=== PATIENT | male | born 1930 | race Caucasian/White ===

== ENCOUNTER 2017-07-10 11:36 | Observation (INO) | payer MEDICARE, BC, OTHER ==
[~2017-07-10] VITALS: Ht 198.1 cm; Wt 107.6 kg
[~2017-07-10 11:36] MED LIST: ACET325 PO; ALPR.5 PO; ALUMAG30SU PO; AMITIZA; AMOCLA875 PO; ASPI325 PO; Anucort-Hc25 MG PR; Azithromycin250 MG PO; BELPTAB PO; BENTYL10 MG PO; BISA5EC PO; Bactrim 400-801 EACH PO; Bactrim Ds Tab1 EACH PO; CALCAVITD PO; CHOLEST OFF PO; CLON.1 PO; CLOT10 SS; COLON HELPER; COLON HELPER PO; CYAN100 PO; CYAN1000 PO; Cipro500 MG PO; Clotrim Antifun15 GM TP; DOCCAL240 PO; DOCU100 PO; DOXA4 PO; DOXE10 PO; DOXE25 PO; DOXE50 PO; ENOX40I SC; ESOM20; ESZO2 PO; FENT25TP TOP; FINA5 PO; FISH1000 PO; FURO20; Flagyl500 MG PO; Flomax0.4 MG PO; GAVILAX17 GM PO; GAVILAX8.5 GM PO; GLUC500 PO; HYDACE25S; HYDACE5 PO; HYDMOR2; HYDMOR2 PO; HYDMOR4 PO; HYDR1TAB94 PO; HYOS.125 SL; Hydrocodone-Ap1 EA26 PO; INDO50 PO; ISOMON20 PO; ISOMON30 PO; LACT10SY PO; LANS15EC PO; LANS30EC PO; LAVAP17G PO; LIDO2L; LIDO2L PO; LISI20 PO; LUBIPROSTONE 24 MCG; MEGA RED; METR500 PO; MODA200 PO; MOMENI; MORP30 PO; Milk Of Ma400 MG/5 M PO; Motion Sickness25 M4 PO; NITR.4SL SL; NITR.6SL SL; NYST100TC TOP; Nexium40 MG PO; Norco 10-325 T1 EACH PO; Norco 5-325 Ta1 EACH PO; Norco 7.5-3251 EACH PO; Nystatin15 GM TP; OLME20 PO; OLME20-12. PO; OLME40 PO; OMEP20ER PO; OMEP40CA12 PO; ONDA4ODT PO; OSTEO BI-FLEX1 EAC2 PO; OXYACE5T PO; OXYACE7.5T PO; OXYC5 PO; Omeprazole20 M1; Omeprazole20 M1 PO; PENVK500 PO; POTA10T; PRED20 PO; PROC10 PO; PROCTOSOL-HC30 GM EXT; Percocet 5-3251 EACH PO; Prilosec Otc20 MG PO; RANI150 PO; RANO500T PO; ROXICODONE5 MG PO; RXOXYACE PO; SENNA PO; SILENOR6 MG PO; SOLI5 PO; SOTO80 PO; SUCR1 PO; SULTRIDS PO; TAMS.4ER PO; TAMSULOSIN HCL0.4 MG PO; TERA5 PO; TOCO1000 PO; TRAM50; TRAM50 PO; TRAMADOL; TRIPLE FLEX CA1 EACH PO; TRIPLE FLEX PO; UBID100 PO; Ultram50 MG PO; VICODIN PO; VITAMIN B122500 MC1 PO; WATER PILL; ZOLP10 PO; [UNRECOGNIZED DRUG - OTHER]; [UNRECOGNIZED DRUG - OTHER] PO; [UNRECOGNIZED DRUG - OTHER] PO; [UNRECOGNIZED DRUG - OTHER] PO
[2017-07-10 12:02] LABS: BASOPHILS ABSOLUTE AUTO 0.03 K/mm3 (0.00-0.23); BASOPHILS PERCENT AUTO 0 % (0-2); EOSINOPHILS ABSOLUTE AUTO 0.75 K/mm3 (0.00-0.68); EOSINOPHILS PERCENT AUTO 11 % (0-6); Hematocrit 45.7 % (37.0-53.0); IMMATURE GRAN ABSOLUTE AUTO 0.01 K/mm3 (0.00-0.10); IMMATURE GRAN PERCENT AUTO 0 % (0-1); LYMPHOCYTES ABSOLUTE AUTO 1.65 K/mm3 (0.84-5.20); LYMPHOCYTES PERCENT AUTO 24 % (21-46); MONOCYTES PERCENT AUTO 6 % (4-13); Mean Corpuscular HGB 30.7 pg (26.0-34.0); Mean Corpuscular HGB Conc 32.8 g/dL (31.5-36.5); Mean Corpuscular Volume 94 fL (80-100); Mean Platelet Volume 9.8 fL (9.1-12.4); NEUTROPHILS PERCENT AUTO 59 % (41-73); Platelet Count 189 K/mm3 (150-400); RDW Coefficient Variation 13.3 % (11.7-14.2); RDW Standard Deviation 45.7 fL (35.1-46.3); Red Blood Cell Count 4.88 M/mm3 (4.30-5.90); White Blood Cell Count 6.84 K/mm3 (4.00-11.30)
[2017-07-10 12:20] LABS: Alanine Aminotransfer (ALT/SGP 19 U/L (12-78); Albumin, Blood 3.3 g/dL (3.4-5.0); Albumin/Globulin Ratio 0.9 (0.8-1.8); Alk Phos 97 U/L (50-136); Anion Gap 6 mmol/L (6-16); Aspartate Aminotrans (AST/SGOT 14 U/L (12-37); Bilirubin, Total 0.9 mg/dL (0.1-1.0); Blood Urea Nitrogen 19 mg/dL (8-24); Bun/Creatinine Ratio 17.9 (12.0-20.0); CO2, Blood 27 mmol/L (21-32); Calcium, Blood 8.4 mg/dL (8.5-10.1); Chloride, Blood 107 mmol/L (98-108); Creatinine, Blood 1.06 mg/dL (0.60-1.20); Globulin, Blood 3.7 g/dL (2.2-4.0); Glomerular Filtration Rate >60 (60-); Glucose, Blood 97 mg/dL (70-99); Potassium, Blood 4.1 mmol/L (3.5-5.5); Sodium, Blood 140 mmol/L (136-145); Troponin I <0.015 ng/mL (0.000-0.040)
[2017-07-10 22:38] LABS: Source, Urine Voided
[2017-07-10 22:49] LABS: Bilirubin, Urine Neg (Neg); Blood, Urine Neg (Neg); Glucose Qualitative, Urine Neg (Neg); Ketones, Urine Neg (Neg); Leukocyte Esterase, Urine 1+ (Neg); Nitrite, Urine Neg (Neg); Protein, Urine Neg (Neg); Specific Gravity, Urine 1.015 (1.003-1.022); Urobilinogen, Urine 2+ (Normal); pH, Urine 6.5 (5.0-8.0)
[2017-07-10 22:52] LABS: Appearance, Urine Clear (Clear); Color, Urine Amber (P-Yellow)
[2017-07-10 22:55] LABS: Amorphous Light (0-Heavy); Bacteria Rare /hpf; Mucus Light (0-Heavy); Red Blood Cells, Urine Not Seen /hpf (0-2); Squamous Epithelial Cells Not Seen /hpf (Few); White Blood Cells, Urine Rare /hpf (0-5)
[2017-07-11 05:19] LABS: Alanine Aminotransfer (ALT/SGP 16 U/L (12-78); Albumin, Blood 2.9 g/dL (3.4-5.0); Albumin/Globulin Ratio 0.9 (0.8-1.8); Alk Phos 82 U/L (50-136); Anion Gap 7 mmol/L (6-16); Aspartate Aminotrans (AST/SGOT 12 U/L (12-37); Bilirubin, Total 0.8 mg/dL (0.1-1.0); Blood Urea Nitrogen 17 mg/dL (8-24); Bun/Creatinine Ratio 18.5 (12.0-20.0); CO2, Blood 26 mmol/L (21-32); Calcium, Blood 8.2 mg/dL (8.5-10.1); Chloride, Blood 107 mmol/L (98-108); Creatinine, Blood 0.92 mg/dL (0.60-1.20); Globulin, Blood 3.2 g/dL (2.2-4.0); Glomerular Filtration Rate >60 (60-); Glucose, Blood 96 mg/dL (70-99); Potassium, Blood 3.9 mmol/L (3.5-5.5); Sodium, Blood 140 mmol/L (136-145); Total Protein, Blood 6.1 g/dL (6.4-8.2)
[2017-07-11 05:22] LABS: Troponin I <0.015 ng/mL (0.000-0.040)
[2017-11-17] MEDS ORDERED: Vitamin B Comple1 EA PO (23:42)
[2018-03-18] MEDS ORDERED: DULOXETINE HCL20 MG PO (13:15)
[2018-03-18] MEDS ORDERED: FINA5 PO (13:15)
[2018-03-18] MEDS ORDERED: RANO500T PO (13:16)
[2018-05-06] MEDS ORDERED: TAMS.4ER PO (10:22)
[2018-05-06] MEDS ORDERED: TRAZ100 PO (10:22)
[2018-05-06] MEDS ORDERED: SOTO80 PO (10:23)
[2018-05-06] MEDS ORDERED: DOXE50 PO (10:23)
[2018-05-06] MEDS ORDERED: EC-Naprosyn375 MG PO (13:16)
== END 2017-07-11 17:29 | disposition home or self-care (01) ==
LOC: ER 11:36 → MEDS 11:37 → ER 15:31 → MEDS 22:00 → ENPENDDIS 07-11 16:36 → MEDS 07-11 17:29
PROVIDERS: Emergency Medicine; Family Medicine
DX: R07.89 Other chest pain (principal); I25.10 Atherosclerotic heart disease of native coronary artery without angina pectoris; I48.91 Unspecified atrial fibrillation; I11.9 Hypertensive heart disease without heart failure; I09.9 Rheumatic heart disease, unspecified; N40.0 Benign prostatic hyperplasia without lower urinary tract symptoms; M19.90 Unspecified osteoarthritis, unspecified site; E11.9 Type 2 diabetes mellitus without complications; E78.5 Hyperlipidemia, unspecified; R13.10 Dysphagia, unspecified; K21.9 Gastro-esophageal reflux disease without esophagitis; I71.4 Abdominal aortic aneurysm, without rupture; H52.209 Unspecified astigmatism, unspecified eye; Z90.49 Acquired absence of other specified parts of digestive tract; Z95.0 Presence of cardiac pacemaker; Z79.82 Long term (current) use of aspirin; Z79.899 Other long term (current) drug therapy; Z87.891 Personal history of nicotine dependence; Z98.890 Other specified postprocedural states
CPT/HCPCS: 36415; 71046; 80053; 81001; 82947; 83880; 84484; 85025; 87086; 93005; 93010; 99285; G0378; J1650

== ENCOUNTER 2017-08-02 15:45 | Emergency (ER) | payer MEDICARE, BC, OTHER ==
[~2017-08-02] VITALS: Ht 198.1 cm; Wt 111.1 kg
[2017-08-02] MEDS ORDERED: DULO30 PO (16:17)
[2017-08-02 16:26] LABS: BASOPHILS ABSOLUTE AUTO 0.05 K/mm3 (0.00-0.23); BASOPHILS PERCENT AUTO 1 % (0-2); EOSINOPHILS ABSOLUTE AUTO 0.31 K/mm3 (0.00-0.68); EOSINOPHILS PERCENT AUTO 4 % (0-6); Hematocrit 45.1 % (37.0-53.0); Hemoglobin 14.7 g/dL (13.5-17.5); IMMATURE GRAN ABSOLUTE AUTO 0.02 K/mm3 (0.00-0.10); IMMATURE GRAN PERCENT AUTO 0 % (0-1); LYMPHOCYTES ABSOLUTE AUTO 1.41 K/mm3 (0.84-5.20); LYMPHOCYTES PERCENT AUTO 18 % (21-46); MONOCYTES PERCENT AUTO 6 % (4-13); Mean Corpuscular HGB 30.1 pg (26.0-34.0); Mean Corpuscular HGB Conc 32.6 g/dL (31.5-36.5); Mean Corpuscular Volume 92 fL (80-100); Mean Platelet Volume 9.8 fL (9.1-12.4); NEUTROPHILS ABSOLUTE AUTO 5.75 K/mm3 (1.96-9.15); NEUTROPHILS PERCENT AUTO 72 % (41-73); Platelet Count 200 K/mm3 (150-400); RDW Coefficient Variation 12.5 % (11.7-14.2); RDW Standard Deviation 42.4 fL (35.1-46.3); Red Blood Cell Count 4.89 M/mm3 (4.30-5.90); White Blood Cell Count 8.04 K/mm3 (4.00-11.30)
[2017-08-02 16:41] LABS: Alanine Aminotransfer (ALT/SGP 18 U/L (12-78); Albumin, Blood 3.4 g/dL (3.4-5.0); Albumin/Globulin Ratio 0.9 (0.8-1.8); Alk Phos 95 U/L (50-136); Anion Gap 9 mmol/L (6-16); Aspartate Aminotrans (AST/SGOT 15 U/L (12-37); Bilirubin, Total 1.5 mg/dL (0.1-1.0); Blood Urea Nitrogen 18 mg/dL (8-24); Bun/Creatinine Ratio 16.4 (12.0-20.0); CO2, Blood 26 mmol/L (21-32); Calcium, Blood 8.5 mg/dL (8.5-10.1); Chloride, Blood 102 mmol/L (98-108); Globulin, Blood 3.6 g/dL (2.2-4.0); Glomerular Filtration Rate >60 (60-); Glucose, Blood 93 mg/dL (70-99); Potassium, Blood 3.7 mmol/L (3.5-5.5); Sodium, Blood 137 mmol/L (136-145); Troponin I <0.015 ng/mL (0.000-0.040)
[2017-08-02 17:55] LABS: Source, Urine Clean Catch
[2017-08-02 18:00] LABS: Bilirubin, Urine Neg (Neg); Blood, Urine Neg (Neg); Glucose Qualitative, Urine Neg (Neg); Ketones, Urine 1+ (Neg); Leukocyte Esterase, Urine Neg (Neg); Nitrite, Urine Neg (Neg); Protein, Urine 1+ (Neg); Specific Gravity, Urine 1.015 (1.003-1.022); Urobilinogen, Urine 1+ (Normal)
[2017-08-02 18:08] LABS: Appearance, Urine Clear (Clear); Color, Urine Yellow (P-Yellow)
[2017-11-17] MEDS ORDERED: Vitamin B Comple1 EA PO (23:42)
[2018-03-18] MEDS ORDERED: DULOXETINE HCL20 MG PO (13:15)
[2018-03-18] MEDS ORDERED: FINA5 PO (13:15)
[2018-03-18] MEDS ORDERED: RANO500T PO (13:16)
[2018-05-06] MEDS ORDERED: TRAZ100 PO (10:22)
[2018-05-06] MEDS ORDERED: TAMS.4ER PO (10:22)
[2018-05-06] MEDS ORDERED: SOTO80 PO (10:23)
[2018-05-06] MEDS ORDERED: DOXE50 PO (10:23)
[2018-05-06] MEDS ORDERED: EC-Naprosyn375 MG PO (13:16)
== END 2017-08-02 19:12 | disposition home or self-care (01) ==
LOC: ER 15:45
PROVIDERS: Emergency Medicine
DX: R07.9 Chest pain, unspecified (principal); I48.91 Unspecified atrial fibrillation; I10 Essential (primary) hypertension; E11.9 Type 2 diabetes mellitus without complications; E78.5 Hyperlipidemia, unspecified
CPT/HCPCS: 71046; 80053; 83690; 84484; 85025; 93005; 93010; 96374; 99284; J2405

== ENCOUNTER 2017-10-08 19:29 | Emergency (ER) | payer MEDICARE, BC, OTHER ==
[~2017-10-08] VITALS: Ht 198.1 cm; Wt 111.1 kg
[~2017-10-08 19:29] MED LIST changes: +DULO30 PO
[2017-10-08 20:03] LABS: BASOPHILS ABSOLUTE AUTO 0.04 K/mm3 (0.00-0.23); BASOPHILS PERCENT AUTO 1 % (0-2); EOSINOPHILS ABSOLUTE AUTO 0.29 K/mm3 (0.00-0.68); EOSINOPHILS PERCENT AUTO 4 % (0-6); Hemoglobin 14.9 g/dL (13.5-17.5); IMMATURE GRAN ABSOLUTE AUTO 0.02 K/mm3 (0.00-0.10); IMMATURE GRAN PERCENT AUTO 0 % (0-1); LYMPHOCYTES ABSOLUTE AUTO 1.55 K/mm3 (0.84-5.20); LYMPHOCYTES PERCENT AUTO 19 % (21-46); MONOCYTES ABSOLUTE AUTO 0.54 K/mm3 (0.16-1.47); MONOCYTES PERCENT AUTO 7 % (4-13); Mean Corpuscular HGB 30.9 pg (26.0-34.0); Mean Corpuscular HGB Conc 33.1 g/dL (31.5-36.5); Mean Corpuscular Volume 93 fL (80-100); Mean Platelet Volume 8.8 fL (9.1-12.4); NEUTROPHILS ABSOLUTE AUTO 5.92 K/mm3 (1.96-9.15); NEUTROPHILS PERCENT AUTO 71 % (41-73); Platelet Count 210 K/mm3 (150-400); RDW Coefficient Variation 13.2 % (11.7-14.2); RDW Standard Deviation 44.9 fL (35.1-46.3); Red Blood Cell Count 4.82 M/mm3 (4.30-5.90); White Blood Cell Count 8.36 K/mm3 (4.00-11.30)
[2017-10-08 20:23] LABS: Alanine Aminotransfer (ALT/SGP 19 U/L (12-78); Albumin, Blood 3.7 g/dL (3.4-5.0); Alk Phos 93 U/L (50-136); Anion Gap 6 mmol/L (6-16); Aspartate Aminotrans (AST/SGOT 16 U/L (12-37); Bilirubin, Total 1.6 mg/dL (0.1-1.0); Blood Urea Nitrogen 23 mg/dL (8-24); Bun/Creatinine Ratio 20.5 (12.0-20.0); CO2, Blood 27 mmol/L (21-32); Calcium, Blood 8.9 mg/dL (8.5-10.1); Chloride, Blood 107 mmol/L (98-108); Creatinine, Blood 1.12 mg/dL (0.60-1.20); Globulin, Blood 3.6 g/dL (2.2-4.0); Glomerular Filtration Rate >60 (60-); Glucose, Blood 97 mg/dL (70-99); Potassium, Blood 4.1 mmol/L (3.5-5.5); Sodium, Blood 140 mmol/L (136-145); Total Protein, Blood 7.3 g/dL (6.4-8.2)
== END 2017-10-09 | disposition home or self-care (01) ==
LOC: ER 19:29
PROVIDERS: Emergency Medicine
DX: R73.9 Hyperglycemia, unspecified (principal); Z88.8 Allergy status to other drugs, medicaments and biological substances; Z91.040 Latex allergy status; Z91.048 Other nonmedicinal substance allergy status; Z79.899 Other long term (current) drug therapy; Z79.82 Long term (current) use of aspirin; Z79.891 Long term (current) use of opiate analgesic; I10 Essential (primary) hypertension; Z87.891 Personal history of nicotine dependence
CPT/HCPCS: 36415; 80053; 82947; 85025; 99283

== ENCOUNTER 2017-12-13 13:43 | Emergency (ER) | payer MEDICARE, BC, OTHER ==
[~2017-12-13] VITALS: Ht 198.1 cm; Wt 111.1 kg
[~2017-12-13 13:43] MED LIST changes: +Vitamin B Comple1 EA PO
[2017-12-13 14:59] LABS: BASOPHILS ABSOLUTE AUTO 0.04 K/mm3 (0.00-0.23); BASOPHILS PERCENT AUTO 1 % (0-2); EOSINOPHILS ABSOLUTE AUTO 0.78 K/mm3 (0.00-0.68); EOSINOPHILS PERCENT AUTO 10 % (0-6); Hematocrit 44.7 % (37.0-53.0); Hemoglobin 14.6 g/dL (13.5-17.5); IMMATURE GRAN ABSOLUTE AUTO 0.04 K/mm3 (0.00-0.10); IMMATURE GRAN PERCENT AUTO 1 % (0-1); LYMPHOCYTES ABSOLUTE AUTO 1.56 K/mm3 (0.84-5.20); LYMPHOCYTES PERCENT AUTO 21 % (21-46); MONOCYTES ABSOLUTE AUTO 0.42 K/mm3 (0.16-1.47); MONOCYTES PERCENT AUTO 6 % (4-13); Mean Corpuscular HGB 30.5 pg (26.0-34.0); Mean Corpuscular HGB Conc 32.7 g/dL (31.5-36.5); Mean Corpuscular Volume 94 fL (80-100); Mean Platelet Volume 9.3 fL (9.1-12.4); NEUTROPHILS ABSOLUTE AUTO 4.63 K/mm3 (1.96-9.15); NEUTROPHILS PERCENT AUTO 62 % (41-73); Platelet Count 176 K/mm3 (150-400); RDW Coefficient Variation 12.6 % (11.7-14.2); RDW Standard Deviation 43.7 fL (35.1-46.3); Red Blood Cell Count 4.78 M/mm3 (4.30-5.90); White Blood Cell Count 7.47 K/mm3 (4.00-11.30)
[2017-12-13 15:24] LABS: Alanine Aminotransfer (ALT/SGP 15 U/L (12-78); Albumin, Blood 3.3 g/dL (3.4-5.0); Albumin/Globulin Ratio 0.9 (0.8-1.8); Alk Phos 98 U/L (50-136); Anion Gap 9 mmol/L (6-16); Aspartate Aminotrans (AST/SGOT 12 U/L (12-37); Bilirubin, Total 0.8 mg/dL (0.1-1.0); Blood Urea Nitrogen 23 mg/dL (8-24); Bun/Creatinine Ratio 22.1 (12.0-20.0); CO2, Blood 25 mmol/L (21-32); Calcium, Blood 8.4 mg/dL (8.5-10.1); Chloride, Blood 107 mmol/L (98-108); Creatinine, Blood 1.04 mg/dL (0.60-1.20); Globulin, Blood 3.6 g/dL (2.2-4.0); Glomerular Filtration Rate >60 (60-); Glucose, Blood 86 mg/dL (70-99); Potassium, Blood 3.9 mmol/L (3.5-5.5); Sodium, Blood 141 mmol/L (136-145); Total Protein, Blood 6.9 g/dL (6.4-8.2); Troponin I <0.015 ng/mL (0.000-0.040)
== END 2017-12-13 16:25 | disposition home or self-care (01) ==
LOC: ER 13:43
PROVIDERS: Internal Medicine
DX: K29.70 Gastritis, unspecified, without bleeding (principal); Z91.040 Latex allergy status; Z91.048 Other nonmedicinal substance allergy status; Z79.899 Other long term (current) drug therapy; I10 Essential (primary) hypertension; Z87.891 Personal history of nicotine dependence
CPT/HCPCS: 71046; 80053; 82947; 83880; 84484; 85025; 93005; 93010; 99284

== ENCOUNTER 2018-03-18 12:55 | Emergency (ER) | payer MEDICARE, OTHER ==
[~2018-03-18] VITALS: Ht 198.1 cm; Wt 120.2 kg
[2018-03-18] MEDS ORDERED: DULOXETINE HCL20 MG (13:15)
[2018-03-18] MEDS ORDERED: TRAZ50 (13:15)
[2018-03-18] MEDS ORDERED: FINA5 (13:15)
[2018-03-18] MEDS ORDERED: Nortriptyline H50 MG (13:16)
[2018-03-18] MEDS ORDERED: ESCI10 (13:16)
[2018-03-18] MEDS ORDERED: RANO500T (13:16)
[2018-03-18] MEDS ORDERED: Dicyclomine HCl10 MG (13:16)
[2018-03-18 13:32] LABS: BASOPHILS ABSOLUTE AUTO 0.04 K/mm3 (0.00-0.23); BASOPHILS PERCENT AUTO 1 % (0-2); EOSINOPHILS ABSOLUTE AUTO 0.55 K/mm3 (0.00-0.68); EOSINOPHILS PERCENT AUTO 8 % (0-6); Hematocrit 43.9 % (37.0-53.0); Hemoglobin 14.3 g/dL (13.5-17.5); IMMATURE GRAN ABSOLUTE AUTO 0.02 K/mm3 (0.00-0.10); IMMATURE GRAN PERCENT AUTO 0 % (0-1); LYMPHOCYTES ABSOLUTE AUTO 1.67 K/mm3 (0.84-5.20); LYMPHOCYTES PERCENT AUTO 25 % (21-46); MONOCYTES ABSOLUTE AUTO 0.45 K/mm3 (0.16-1.47); MONOCYTES PERCENT AUTO 7 % (4-13); Mean Corpuscular HGB 30.3 pg (26.0-34.0); Mean Corpuscular HGB Conc 32.6 g/dL (31.5-36.5); Mean Corpuscular Volume 93 fL (80-100); Mean Platelet Volume 9.4 fL (9.1-12.4); NEUTROPHILS ABSOLUTE AUTO 4.02 K/mm3 (1.96-9.15); NEUTROPHILS PERCENT AUTO 60 % (41-73); Platelet Count 188 K/mm3 (150-400); RDW Coefficient Variation 12.7 % (11.7-14.2); RDW Standard Deviation 43.9 fL (35.1-46.3); Red Blood Cell Count 4.72 M/mm3 (4.30-5.90); White Blood Cell Count 6.75 K/mm3 (4.00-11.30)
[2018-03-18 13:49] LABS: Alanine Aminotransfer (ALT/SGP 18 U/L (12-78); Albumin, Blood 3.4 g/dL (3.4-5.0); Alk Phos 100 U/L (50-136); Anion Gap 8 mmol/L (6-16); Aspartate Aminotrans (AST/SGOT 16 U/L (12-37); Blood Urea Nitrogen 14 mg/dL (8-24); Bun/Creatinine Ratio 13.2 (12.0-20.0); CO2, Blood 28 mmol/L (21-32); Calcium, Blood 8.6 mg/dL (8.5-10.1); Chloride, Blood 104 mmol/L (98-108); Creatinine, Blood 1.06 mg/dL (0.60-1.20); Globulin, Blood 3.5 g/dL (2.2-4.0); Glomerular Filtration Rate >60 (60-); Glucose, Blood 88 mg/dL (70-99); Potassium, Blood 3.7 mmol/L (3.5-5.5); Sodium, Blood 140 mmol/L (136-145); Total Protein, Blood 6.9 g/dL (6.4-8.2); Troponin I <0.015 ng/mL (0.000-0.040)
[2018-03-18 14:47] LABS: Source, Urine Clean Catch
[2018-03-18 14:52] LABS: Appearance, Urine Clear (Clear); Bilirubin, Urine Neg (Neg); Blood, Urine Neg (Neg); Color, Urine Yellow (P-Yellow); Glucose Qualitative, Urine Neg (Neg); Ketones, Urine Neg (Neg); Leukocyte Esterase, Urine Neg (Neg); Nitrite, Urine Neg (Neg); Protein, Urine Neg (Neg); Urobilinogen, Urine 1+ (Normal)
[2018-03-18] MEDS ORDERED: Zofran Odt4 MG PO (15:59)
== END 2018-03-18 15:59 | disposition home or self-care (01) ==
LOC: ER 12:55
PROVIDERS: Emergency Medicine
DX: R10.9 Unspecified abdominal pain (principal); R07.9 Chest pain, unspecified; R19.7 Diarrhea, unspecified; G89.29 Other chronic pain; I10 Essential (primary) hypertension; Z91.048 Other nonmedicinal substance allergy status; Z88.8 Allergy status to other drugs, medicaments and biological substances; Z91.040 Latex allergy status; Z79.899 Other long term (current) drug therapy
CPT/HCPCS: 71046; 74019; 80053; 81003; 84484; 85025; 93005; 93010; 99284-25

== ENCOUNTER 2018-07-09 20:33 | Emergency (ER) | payer MEDICARE, OTHER ==
[~2018-07-09] VITALS: Ht 198.1 cm; Wt 106.6 kg
[~2018-07-09 20:33] MED LIST changes: +DULOXETINE HCL20 MG PO; +Dicyclomine HCl10 MG; +EC-Naprosyn375 MG PO; +ESCI10; +Nortriptyline H50 MG; +TRAZ100 PO; +TRAZ50; +Zofran Odt4 MG PO
== END 2018-07-09 21:30 | disposition home or self-care (01) ==
LOC: ER 20:33
DX: S51.012A Laceration without foreign body of left elbow, initial encounter (principal); S61.412A Laceration without foreign body of left hand, initial encounter; S16.1XXA Strain of muscle, fascia and tendon at neck level, initial encounter; S70.02XA Contusion of left hip, initial encounter; W19.XXXA Unspecified fall, initial encounter; I48.91 Unspecified atrial fibrillation; I10 Essential (primary) hypertension; E11.9 Type 2 diabetes mellitus without complications; E78.5 Hyperlipidemia, unspecified; Z79.899 Other long term (current) drug therapy
CPT/HCPCS: 72125; 73502; 99284-25

== ENCOUNTER 2019-01-19 15:28 | Emergency (ER) | payer MEDICARE, OTHER ==
[~2019-01-19] VITALS: Ht 198.1 cm; Wt 120.2 kg
[2019-01-19 15:52] LABS: Source, Urine Catheter
[2019-01-19 16:01] LABS: Appearance, Urine Clear (Clear); Blood, Urine Neg (Neg); Color, Urine Amber (P-Yellow); Glucose Qualitative, Urine Neg (Neg); Ketones, Urine 1+ (Neg); Leukocyte Esterase, Urine 1+ (Neg); Nitrite, Urine Neg (Neg); Protein, Urine 1+ (Neg); Specific Gravity, Urine 1.015 (1.003-1.022); Urobilinogen, Urine 3+ (Normal)
[2019-01-19 16:08] LABS: Bilirubin, Urine 1+ (Neg)
[2019-01-19 16:10] LABS: Red Blood Cells, Urine 0-2 /hpf (0-2); Squamous Epithelial Cells Not Seen /hpf (Few); White Blood Cells, Urine 0-2 /hpf (0-5)
[2019-01-19 16:11] LABS: Bacteria Rare /hpf
[2019-01-19] MEDS ORDERED: Cipro500 MG PO (16:32)
[2019-01-19] MEDS ORDERED: Norco 5-325 Ta1 EACH PO (16:37)
== END 2019-01-19 16:41 | disposition home or self-care (01) ==
LOC: ER 15:28
PROVIDERS: Emergency Medicine
DX: N39.0 Urinary tract infection, site not specified (principal); Z91.048 Other nonmedicinal substance allergy status; Z88.8 Allergy status to other drugs, medicaments and biological substances; Z91.040 Latex allergy status; Z79.899 Other long term (current) drug therapy; I10 Essential (primary) hypertension; Z87.891 Personal history of nicotine dependence
CPT/HCPCS: 51701; 81001; 87086; 99283

== ENCOUNTER 2019-01-23 19:15 | Emergency (ER) | payer MEDICARE, OTHER ==
[~2019-01-23] VITALS: Ht 198.1 cm; Wt 120.2 kg
[2019-01-23 19:30] LABS: BASOPHILS ABSOLUTE AUTO 0.05 K/mm3 (0.00-0.23); BASOPHILS PERCENT AUTO 1 % (0-2); EOSINOPHILS ABSOLUTE AUTO 0.48 K/mm3 (0.00-0.68); EOSINOPHILS PERCENT AUTO 8 % (0-6); Hematocrit 40.9 % (37.0-53.0); Hemoglobin 13.1 g/dL (13.5-17.5); IMMATURE GRAN ABSOLUTE AUTO 0.02 K/mm3 (0.00-0.10); IMMATURE GRAN PERCENT AUTO 0 % (0-1); LYMPHOCYTES ABSOLUTE AUTO 1.34 K/mm3 (0.84-5.20); LYMPHOCYTES PERCENT AUTO 23 % (21-46); MONOCYTES PERCENT AUTO 7 % (4-13); Mean Corpuscular Volume 97 fL (80-100); Mean Platelet Volume 9.4 fL (9.1-12.4); NEUTROPHILS ABSOLUTE AUTO 3.63 K/mm3 (1.96-9.15); NEUTROPHILS PERCENT AUTO 61 % (41-73); Platelet Count 167 K/mm3 (150-400); RDW Coefficient Variation 13.1 % (11.7-14.2); Red Blood Cell Count 4.22 M/mm3 (4.30-5.90); White Blood Cell Count 5.92 K/mm3 (4.00-11.30)
[2019-01-23] MEDS ORDERED: PANTOPRAZOLE SO40 M1 PO (20:18)
[2019-01-23 20:21] LABS: Alanine Aminotransfer (ALT/SGP 20 U/L (12-78); Albumin, Blood 3.1 g/dL (3.4-5.0); Albumin/Globulin Ratio 1.1 (0.8-1.8); Alk Phos 66 U/L (50-136); Anion Gap 6 mmol/L (6-16); Aspartate Aminotrans (AST/SGOT 12 U/L (12-37); Blood Urea Nitrogen 19 mg/dL (8-24); Bun/Creatinine Ratio 17.3 (12.0-20.0); CO2, Blood 25 mmol/L (21-32); Calcium, Blood 8.1 mg/dL (8.5-10.1); Chloride, Blood 110 mmol/L (98-108); Globulin, Blood 2.8 g/dL (2.2-4.0); Glomerular Filtration Rate >60 (60-); Glucose, Blood 81 mg/dL (70-99); Sodium, Blood 141 mmol/L (136-145); Total Protein, Blood 5.9 g/dL (6.4-8.2); Troponin I <0.015 ng/mL (0.000-0.040)
[2019-01-23] MEDS ORDERED: Nortriptyline H10 MG PO (20:21)
[2019-01-23 23:23] LABS: Source, Urine Voided
[2019-01-23 23:27] LABS: Blood, Urine Neg (Neg); Glucose Qualitative, Urine Neg (Neg); Ketones, Urine 1+ (Neg); Leukocyte Esterase, Urine 1+ (Neg); Nitrite, Urine Neg (Neg); Protein, Urine Neg (Neg); Urobilinogen, Urine 2+ (Normal)
[2019-01-23 23:31] LABS: Appearance, Urine Clear (Clear); Bilirubin, Urine 1+ (Neg); Color, Urine Amber (P-Yellow)
[2019-01-23 23:40] LABS: Bacteria Not Seen /hpf; Red Blood Cells, Urine Not Seen /hpf (0-2); Squamous Epithelial Cells Not Seen /hpf (Few); White Blood Cells, Urine Rare /hpf (0-5)
[2019-01-24] MEDS ORDERED: Miralax17 GM PO (00:22)
== END 2019-01-24 00:41 | disposition home or self-care (01) ==
LOC: ER 19:15
PROVIDERS: Emergency Medicine
DX: K56.41 Fecal impaction (principal); I10 Essential (primary) hypertension; Z91.040 Latex allergy status; Z91.048 Other nonmedicinal substance allergy status; Z79.899 Other long term (current) drug therapy; Z87.891 Personal history of nicotine dependence
CPT/HCPCS: 74176; 80053; 81001; 83690; 84484; 85025; 87086; 93005; 93010; 99284-25

== ENCOUNTER 2019-02-28 19:07 | Emergency (ER) | payer MEDICARE, OTHER ==
[~2019-02-28] VITALS: Ht 198.1 cm; Wt 120.2 kg
[~2019-02-28 19:07] MED LIST changes: +Miralax17 GM PO; +Nortriptyline H10 MG PO; +PANTOPRAZOLE SO40 M1 PO
[2019-02-28 19:56] LABS: BASOPHILS ABSOLUTE AUTO 0.04 K/mm3 (0.00-0.23); BASOPHILS PERCENT AUTO 0 % (0-2); EOSINOPHILS ABSOLUTE AUTO 0.44 K/mm3 (0.00-0.68); EOSINOPHILS PERCENT AUTO 5 % (0-6); Hematocrit 47.8 % (37.0-53.0); Hemoglobin 15.3 g/dL (13.5-17.5); IMMATURE GRAN ABSOLUTE AUTO 0.03 K/mm3 (0.00-0.10); IMMATURE GRAN PERCENT AUTO 0 % (0-1); LYMPHOCYTES ABSOLUTE AUTO 1.48 K/mm3 (0.84-5.20); LYMPHOCYTES PERCENT AUTO 15 % (21-46); MONOCYTES ABSOLUTE AUTO 0.66 K/mm3 (0.16-1.47); MONOCYTES PERCENT AUTO 7 % (4-13); Mean Corpuscular HGB 30.4 pg (26.0-34.0); Mean Corpuscular Volume 95 fL (80-100); Mean Platelet Volume 10.9 fL (9.1-12.4); NEUTROPHILS ABSOLUTE AUTO 7.03 K/mm3 (1.96-9.15); NEUTROPHILS PERCENT AUTO 73 % (41-73); Platelet Count 200 K/mm3 (150-400); RDW Coefficient Variation 13.2 % (11.7-14.2); RDW Standard Deviation 46.4 fL (35.1-46.3); Red Blood Cell Count 5.04 M/mm3 (4.30-5.90); White Blood Cell Count 9.68 K/mm3 (4.00-11.30)
[2019-02-28 20:06] LABS: Albumin, Blood 3.3 g/dL (3.4-5.0); Albumin/Globulin Ratio 0.8 (0.8-1.8); Bilirubin, Total 1.6 mg/dL (0.1-1.0); Bun/Creatinine Ratio 19.1 (12.0-20.0); Calcium, Blood 8.7 mg/dL (8.5-10.1); Creatinine, Blood 1.83 mg/dL (0.60-1.20); Potassium, Blood 3.8 mmol/L (3.5-5.5); Total Protein, Blood 7.3 g/dL (6.4-8.2)
[2019-02-28] MEDS ORDERED: TESSALON PERLE100 MG PO (20:26)
== END 2019-02-28 20:44 | disposition home or self-care (01) ==
LOC: ER 19:07
PROVIDERS: Emergency Medicine
DX: N17.9 Acute kidney failure, unspecified (principal); I10 Essential (primary) hypertension; Z79.899 Other long term (current) drug therapy
CPT/HCPCS: 71045; 80053; 85025; 93005; 93010; 99284-25

== ENCOUNTER 2019-05-31 08:36 | Emergency (ER) | payer MEDICARE, OTHER ==
[~2019-05-31] VITALS: Ht 198.1 cm; Wt 74.8 kg
[~2019-05-31 08:36] MED LIST changes: -Nortriptyline H10 MG PO; +Nortriptyline H50 MG PO; +TESSALON PERLE100 MG PO
[2019-05-31 09:19] LABS: BASOPHILS ABSOLUTE AUTO 0.04 K/mm3 (0.00-0.23); BASOPHILS PERCENT AUTO 1 % (0-2); EOSINOPHILS ABSOLUTE AUTO 0.38 K/mm3 (0.00-0.68); EOSINOPHILS PERCENT AUTO 5 % (0-6); Hematocrit 42.1 % (37.0-53.0); Hemoglobin 13.4 g/dL (13.5-17.5); IMMATURE GRAN ABSOLUTE AUTO 0.04 K/mm3 (0.00-0.10); IMMATURE GRAN PERCENT AUTO 1 % (0-1); LYMPHOCYTES ABSOLUTE AUTO 2.16 K/mm3 (0.84-5.20); LYMPHOCYTES PERCENT AUTO 29 % (21-46); MONOCYTES ABSOLUTE AUTO 0.46 K/mm3 (0.16-1.47); MONOCYTES PERCENT AUTO 6 % (4-13); Mean Corpuscular HGB 30.7 pg (26.0-34.0); Mean Corpuscular HGB Conc 31.8 g/dL (31.5-36.5); Mean Corpuscular Volume 97 fL (80-100); Mean Platelet Volume 9.9 fL (9.1-12.4); NEUTROPHILS ABSOLUTE AUTO 4.42 K/mm3 (1.96-9.15); NEUTROPHILS PERCENT AUTO 59 % (41-73); Platelet Count 197 K/mm3 (150-400); RDW Coefficient Variation 13.7 % (11.7-14.2); RDW Standard Deviation 49.1 fL (35.1-46.3); Red Blood Cell Count 4.36 M/mm3 (4.30-5.90)
[2019-05-31 09:38] LABS: Alanine Aminotransfer (ALT/SGP 27 U/L (12-78); Albumin, Blood 3.1 g/dL (3.4-5.0); Albumin/Globulin Ratio 0.9 (0.8-1.8); Alk Phos 77 U/L (50-136); Anion Gap 9 mmol/L (6-16); Aspartate Aminotrans (AST/SGOT 25 U/L (12-37); Bilirubin, Total 0.8 mg/dL (0.1-1.0); Blood Urea Nitrogen 21 mg/dL (8-24); Bun/Creatinine Ratio 16.7 (12.0-20.0); CO2, Blood 25 mmol/L (21-32); Calcium, Blood 8.5 mg/dL (8.5-10.1); Chloride, Blood 107 mmol/L (98-108); Creatinine, Blood 1.26 mg/dL (0.60-1.20); Globulin, Blood 3.5 g/dL (2.2-4.0); Glomerular Filtration Rate 57 (60-); Glucose, Blood 89 mg/dL (70-99); Potassium, Blood 3.7 mmol/L (3.5-5.5); Sodium, Blood 141 mmol/L (136-145); Total Protein, Blood 6.6 g/dL (6.4-8.2); Troponin I <0.015 ng/mL (0.000-0.040)
[2019-05-31] MEDS ORDERED: DULO30 PO (10:35)
[2019-05-31] MEDS ORDERED: Diclofenac Sodi50 MG PO (10:35)
[2019-05-31] MEDS ORDERED: Naproxen375 M1 PO (10:36)
== END 2019-05-31 13:20 | disposition home or self-care (01) ==
LOC: ER 08:36
PROVIDERS: Physician Assistant
DX: R07.9 Chest pain, unspecified (principal); I10 Essential (primary) hypertension; Z91.048 Other nonmedicinal substance allergy status; Z88.8 Allergy status to other drugs, medicaments and biological substances; Z91.040 Latex allergy status; Z79.899 Other long term (current) drug therapy
CPT/HCPCS: 71046; 80053; 84484; 85025; 93005; 93010; 99285-25

== ENCOUNTER 2019-06-03 04:36 | Emergency (ER) | payer MEDICARE, OTHER ==
[~2019-06-03] VITALS: Ht 198.1 cm; Wt 72.6 kg
[~2019-06-03 04:36] MED LIST changes: +Diclofenac Sodi50 MG PO; +Naproxen375 M1 PO
[2019-06-03 04:57] LABS: BASOPHILS ABSOLUTE AUTO 0.07 K/mm3 (0.00-0.23); BASOPHILS PERCENT AUTO 1 % (0-2); EOSINOPHILS ABSOLUTE AUTO 0.27 K/mm3 (0.00-0.68); EOSINOPHILS PERCENT AUTO 4 % (0-6); Hematocrit 43.1 % (37.0-53.0); Hemoglobin 13.7 g/dL (13.5-17.5); IMMATURE GRAN ABSOLUTE AUTO 0.01 K/mm3 (0.00-0.10); IMMATURE GRAN PERCENT AUTO 0 % (0-1); LYMPHOCYTES ABSOLUTE AUTO 1.68 K/mm3 (0.84-5.20); LYMPHOCYTES PERCENT AUTO 25 % (21-46); MONOCYTES ABSOLUTE AUTO 0.44 K/mm3 (0.16-1.47); MONOCYTES PERCENT AUTO 7 % (4-13); Mean Corpuscular HGB 30.6 pg (26.0-34.0); Mean Corpuscular HGB Conc 31.8 g/dL (31.5-36.5); Mean Corpuscular Volume 96 fL (80-100); Mean Platelet Volume 9.6 fL (9.1-12.4); NEUTROPHILS ABSOLUTE AUTO 4.25 K/mm3 (1.96-9.15); NEUTROPHILS PERCENT AUTO 63 % (41-73); Platelet Count 209 K/mm3 (150-400); RDW Standard Deviation 49.9 fL (35.1-46.3); Red Blood Cell Count 4.48 M/mm3 (4.30-5.90); White Blood Cell Count 6.72 K/mm3 (4.00-11.30)
[2019-06-03 05:17] LABS: Alanine Aminotransfer (ALT/SGP 47 U/L (12-78); Albumin, Blood 3.2 g/dL (3.4-5.0); Albumin/Globulin Ratio 0.9 (0.8-1.8); Alk Phos 79 U/L (50-136); Anion Gap 9 mmol/L (6-16); Aspartate Aminotrans (AST/SGOT 30 U/L (12-37); Bilirubin, Total 1.3 mg/dL (0.1-1.0); Blood Urea Nitrogen 19 mg/dL (8-24); Bun/Creatinine Ratio 17.1 (12.0-20.0); CO2, Blood 25 mmol/L (21-32); Calcium, Blood 8.8 mg/dL (8.5-10.1); Chloride, Blood 109 mmol/L (98-108); Creatinine, Blood 1.11 mg/dL (0.60-1.20); Globulin, Blood 3.6 g/dL (2.2-4.0); Glomerular Filtration Rate >60 (60-); Glucose, Blood 89 mg/dL (70-99); Potassium, Blood 3.9 mmol/L (3.5-5.5); Sodium, Blood 143 mmol/L (136-145); Total Protein, Blood 6.8 g/dL (6.4-8.2); Troponin I <0.015 ng/mL (0.000-0.040)
== END 2019-06-03 07:04 | disposition home or self-care (01) ==
LOC: ER 04:36
PROVIDERS: Emergency Medicine
DX: R07.9 Chest pain, unspecified (principal); Z88.8 Allergy status to other drugs, medicaments and biological substances; Z91.040 Latex allergy status; Z91.048 Other nonmedicinal substance allergy status; Z79.899 Other long term (current) drug therapy; I10 Essential (primary) hypertension; Z87.891 Personal history of nicotine dependence
CPT/HCPCS: 71046; 80053; 83690; 84484; 85025; 93005; 93010; 99285-25

== ENCOUNTER 2019-06-09 09:22 | Observation (INO) | payer MEDICARE, OTHER ==
[~2019-06-09] VITALS: Ht 193 cm; Wt 90.7 kg
[2019-06-09] MEDS ORDERED: Bentyl10 MG (09:35)
[2019-06-09] MEDS ORDERED: SOTO80 PO (09:35)
[2019-06-09] MEDS ORDERED: TRAZ50 (09:36)
[2019-06-09] MEDS ORDERED: DOXE10 (09:36)
[2019-06-09 09:47] LABS: BASOPHILS ABSOLUTE AUTO 0.03 K/mm3 (0.00-0.23); BASOPHILS PERCENT AUTO 0 % (0-2); EOSINOPHILS ABSOLUTE AUTO 0.03 K/mm3 (0.00-0.68); EOSINOPHILS PERCENT AUTO 0 % (0-6); Hematocrit 41.5 % (37.0-53.0); Hemoglobin 13.3 g/dL (13.5-17.5); IMMATURE GRAN ABSOLUTE AUTO 0.06 K/mm3 (0.00-0.10); IMMATURE GRAN PERCENT AUTO 0 % (0-1); LYMPHOCYTES ABSOLUTE AUTO 1.71 K/mm3 (0.84-5.20); LYMPHOCYTES PERCENT AUTO 13 % (21-46); MONOCYTES ABSOLUTE AUTO 0.86 K/mm3 (0.16-1.47); MONOCYTES PERCENT AUTO 6 % (4-13); Mean Corpuscular HGB 31.1 pg (26.0-34.0); Mean Corpuscular Volume 97 fL (80-100); Mean Platelet Volume 10.2 fL (9.1-12.4); NEUTROPHILS ABSOLUTE AUTO 10.68 K/mm3 (1.96-9.15); NEUTROPHILS PERCENT AUTO 80 % (41-73); Platelet Count 201 K/mm3 (150-400); RDW Coefficient Variation 13.9 % (11.7-14.2); RDW Standard Deviation 50.1 fL (35.1-46.3); Red Blood Cell Count 4.27 M/mm3 (4.30-5.90); White Blood Cell Count 13.37 K/mm3 (4.00-11.30)
[2019-06-09 10:18] LABS: Alanine Aminotransfer (ALT/SGP 45 U/L (12-78); Albumin, Blood 3.1 g/dL (3.4-5.0); Albumin/Globulin Ratio 0.9 (0.8-1.8); Alk Phos 68 U/L (50-136); Anion Gap 7 mmol/L (6-16); Aspartate Aminotrans (AST/SGOT 39 U/L (12-37); Bilirubin, Total 1.5 mg/dL (0.1-1.0); Blood Urea Nitrogen 22 mg/dL (8-24); Bun/Creatinine Ratio 22.7 (12.0-20.0); CO2, Blood 25 mmol/L (21-32); Calcium, Blood 8.4 mg/dL (8.5-10.1); Chloride, Blood 108 mmol/L (98-108); Creatinine, Blood 0.97 mg/dL (0.60-1.20); Globulin, Blood 3.5 g/dL (2.2-4.0); Glomerular Filtration Rate >60 (60-); Glucose, Blood 106 mg/dL (70-99); Potassium, Blood 3.6 mmol/L (3.5-5.5); Sodium, Blood 140 mmol/L (136-145); Total Protein, Blood 6.6 g/dL (6.4-8.2)
[2019-06-09] MEDS ORDERED: Voltaren100 GM TOP (10:59)
[2019-06-09 12:01] LABS: International Normalized Ratio 1.03; Prothrombin Time Results 10.9 Sec (9.7-11.5)
[2019-06-09] MEDS ORDERED: TRAZ100 PO (12:03)
[2019-06-09] MEDS ORDERED: PANTOPRAZOLE SO40 M2 PO (12:04)
[2019-06-09] MEDS ORDERED: Cymbalta20 MG PO (12:04)
[2019-06-09] MEDS ORDERED: Bentyl20 MG PO (12:04)
[2019-06-09] MEDS ORDERED: FINA5 PO (12:05)
[2019-06-09] MEDS ORDERED: RANOLAZINE ER500 M2 PO (12:08)
--- NOTE | 2019-06-09 12:27 | NUR ---
Echocardiogram using 0.5ml of Definity contrast performed.
--- NOTE | 2019-06-09 15:25 | NUR ---
PT ARRIVAL. PT ARRIVED TO UNIT VIA GURNEY, PT WAS ABLE TO SELF TRANSFER FROM GURNEY TO BED, PT WAS WEAK AND UNSTABLE. PT WAS DIAPHORETIC AND C/O OF "CHEST PRESSURE" AND NAUSEA. PT'S VS STABLE. HEPARIN GTT RUNNING PER ORDERS. WILL CONTINUE TO MONITOR.
--- NOTE | 2019-06-09 18:01 | NUR ---
SHIFT SUMMARY. PT'S VS STABLE, PT'S COLOR HAS IMPROVED, PT STATES THAT THE PRESSURE "IS BETTER" UNABLE TO GIVE A NUMBER ON THE PAIN SCALE. PT HAD 1 EPISODE OF N/V, PT WAS MEDICATED PER EMAR WITH GOOD RESULTS. HEPARIN GTT RUNNING PER ORDERS, NS RUNNING AT 75MLS/HR. CARDIOLOGY CONSULTED. CALL LIGHT IN REACH, BED IS LOCKED AND LOW WILL CONTINUE TO MONITOR UNTIL REPORT IS GIVEN TO ONCOMING RN.
--- NOTE | 2019-06-09 23:00 | NUR ---
PROVIDER CONTACTED PT REPORTING SOME EPIGASTRIC DISCOMFORT- STATING THAT HE "HAS HEARTBURN". UPON ASSESSMENT, PT IDENTIFIES EPIGASTRIC PAIN THAT IS "BURNING". DENIES ANYTHING EXACERBATING PAIN, DENIES NAUSEA, DENIES RADIATION. DR CARABALLO CONTACTED AND ORDERS INPUT BY PHYSICIAN FOR PEPCID AND MAALOX. WILL ADMINISTER AND CONTINUE MONITORING.
[2019-06-10 03:22] LABS: Source, Urine Clean Catch
[2019-06-10 03:24] LABS: Appearance, Urine Clear (Clear); Bilirubin, Urine 2+ (Neg); Blood, Urine 1+ (Neg); Color, Urine Amber (P-Yellow); Glucose Qualitative, Urine Neg (Neg); Ketones, Urine 2+ (Neg); Leukocyte Esterase, Urine 1+ (Neg); Nitrite, Urine Pos (Neg); Protein, Urine 2+ (Neg); Urobilinogen, Urine 4+ (Normal)
[2019-06-10 03:31] LABS: Squamous Epithelial Cells Rare /hpf (Few); White Blood Cells, Urine 0-2 /hpf (0-5)
[2019-06-10 03:32] LABS: Bacteria Mod /hpf; Mucus Light (0-Heavy)
[2019-06-10 04:19] LABS: Hematocrit 38.3 % (37.0-53.0); Hemoglobin 11.9 g/dL (13.5-17.5); Mean Corpuscular HGB 31.1 pg (26.0-34.0); Mean Corpuscular HGB Conc 31.1 g/dL (31.5-36.5); Mean Platelet Volume 10.5 fL (9.1-12.4); Platelet Count 174 K/mm3 (150-400); RDW Coefficient Variation 14.1 % (11.7-14.2); RDW Standard Deviation 51.9 fL (35.1-46.3); Red Blood Cell Count 3.83 M/mm3 (4.30-5.90); White Blood Cell Count 8.44 K/mm3 (4.00-11.30)
[2019-06-10 04:20] LABS: Mean Corpuscular Volume 100 fL (80-100)
[2019-06-10 04:36] LABS: Alanine Aminotransfer (ALT/SGP 58 U/L (12-78); Albumin, Blood 2.7 g/dL (3.4-5.0); Albumin/Globulin Ratio 0.8 (0.8-1.8); Alk Phos 60 U/L (50-136); Anion Gap 5 mmol/L (6-16); Aspartate Aminotrans (AST/SGOT 38 U/L (12-37); Bilirubin, Total 1.9 mg/dL (0.1-1.0); Blood Urea Nitrogen 26 mg/dL (8-24); Bun/Creatinine Ratio 27.8 (12.0-20.0); CO2, Blood 29 mmol/L (21-32); Calcium, Blood 8.2 mg/dL (8.5-10.1); Chloride, Blood 106 mmol/L (98-108); Creatinine, Blood 0.93 mg/dL (0.60-1.20); Globulin, Blood 3.3 g/dL (2.2-4.0); Glomerular Filtration Rate >60 (60-); Glucose, Blood 95 mg/dL (70-99); Potassium, Blood 3.9 mmol/L (3.5-5.5); Sodium, Blood 140 mmol/L (136-145)
--- NOTE | 2019-06-10 05:59 | NUR ---
SHIFT SUMMARY PT PREVIOUSLY AOX3 AT START OF SHIFT, BUT HAS GOTTEN PROGRESSIVELY MORE DISORIENTED THROUGHOUT THE NIGHT. PT WAS ASKING IF HIS WAS STILL IN THE HOSPITAL AND SAID THAT SHE WAS THE ONE THAT WAS ADMITTED FOR HER HEART, NOT HIM. WHEN ASKED, PT ABLE TO ANSWER ALL BUT DATE/TIME ORIENTATION QUESTIONS APPROPRIATELY, BUT APPEARS TO BE OCCASIONALLY DISORIENTED TO EVENT. VSS. PLEASANT AND COOPERATIVE WITH CARE. PT HAS DENIED CHEST PAIN AND DYSPNEA THROUGHOUT THE NIGHT. REPORTS THAT EPIGASTRIC PAIN RELIEVED ALMOST IMMEDIATELY AFTER MAALOX ADMINISTRATION- PT REPORTS THAT HE HAS GOTTEN GI COCKTAILS IN THE PAST. IV INFILTRATED TO R ARM, NOTED SWELLING, PT DENIES PAIN TO THE ARM AND STATES "SOMETIMES MY ARM SWELLS LIKE THAT DUE TO POOR CIRCULATION", ARM WRAPPED AND ELEVATED ON PILLOWS. NO REDNESS OR WARMTH NOTED TO ARM. POWERGLIDE PLACED TO HAKEEM THIS AM, FLUIDS AND HEPARIN DRIP CONTINUE INFUSE PER ORDERS. NO OTHER CHANGES NOTED FROM INITIAL ASSESSMENT. WILL CONTINUE TO MONITOR AND REPORT TO ONCOMING SHIFT RN. BED IN LOW POSITION, CALL LIGHT IN REACH. BED ALARM SET FOR SAFETY.
--- NOTE | 2019-06-10 07:50 | NUR ---
AM NOTE. ASSUMED CARE OF PT APROX 0700. PT IS A&Ox3 UNABLE TO STATE DATE AND HAS MOMENTS OF CONFUSION BUT IS DIRECTABLE. PT'S VS STABLE AT THIS TIME. PER NOC RN REPORT THE PT'S HEPARIN GTT INFILTRATED INTO THE PT'S RIGHT ARM, PT'S RIGHT ARM HAS 4+ EDEMA, WARM COMPRESS WAS APPLIED TO THE PT ARM THIS HELPED THE DISCOMFORT FOR THE PT. PT IS 100% PACED, PT ALSO HAS 1-2+ EDEMA TO BLE. L/S CLEAR IN THE UPPER LOBES WITH SOME CRACKLES NOTED IN THE LEFT BASE. BT PRESENT AND NORMOACTIVE, ABD IS SOFT AND NONTENDER TO PALP. CALL LIGHT IN REACH, BED ALARM IS ON.
--- NOTE | 2019-06-10 14:11 | NUR ---
Spiritual care visit conducted. Patient is sitting up in bed and alert. Patient has hoorible short term memory and excellent group home memory. Patient told me many stories of his 20 years in the [employer], about his many jobs and why he moved to [place]. Patient got very excited telling these stories and it brought a pedrito onto his face. In between stories we would have to go through who I am and where the patient is. Patient loved sharing about his adventures and about the characters he met along the way. 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 I listen empathically, normalize patient experience and provide companionship.
--- NOTE | 2019-06-10 16:31 | NUR ---
PT TO ROOM VIA HOSPITAL BED. ORIENTED TO ROOM AND FREQUENT ROUNDING SCHEDULE. BED LOW AND IN LOCKED POSITION CALL LIGHT WITHIN REACH. DENIES ANY DISTRESS. PO FLUIDS PROVIDED.
[2019-06-11 05:19] LABS: BASOPHILS ABSOLUTE AUTO 0.03 K/mm3 (0.00-0.23); BASOPHILS PERCENT AUTO 0 % (0-2); EOSINOPHILS ABSOLUTE AUTO 0.28 K/mm3 (0.00-0.68); EOSINOPHILS PERCENT AUTO 4 % (0-6); Hematocrit 33.5 % (37.0-53.0); Hemoglobin 10.6 g/dL (13.5-17.5); IMMATURE GRAN ABSOLUTE AUTO 0.03 K/mm3 (0.00-0.10); IMMATURE GRAN PERCENT AUTO 0 % (0-1); LYMPHOCYTES ABSOLUTE AUTO 1.75 K/mm3 (0.84-5.20); LYMPHOCYTES PERCENT AUTO 24 % (21-46); MONOCYTES ABSOLUTE AUTO 0.48 K/mm3 (0.16-1.47); MONOCYTES PERCENT AUTO 7 % (4-13); Mean Corpuscular HGB 30.8 pg (26.0-34.0); Mean Corpuscular HGB Conc 31.6 g/dL (31.5-36.5); NEUTROPHILS PERCENT AUTO 65 % (41-73); Platelet Count 150 K/mm3 (150-400); RDW Coefficient Variation 13.9 % (11.7-14.2); RDW Standard Deviation 49.7 fL (35.1-46.3); Red Blood Cell Count 3.44 M/mm3 (4.30-5.90); White Blood Cell Count 7.27 K/mm3 (4.00-11.30)
[2019-06-11 05:23] LABS: Mean Corpuscular Volume 97 fL (80-100)
[2019-06-11 05:34] LABS: Anion Gap 5 mmol/L (6-16); Blood Urea Nitrogen 24 mg/dL (8-24); Bun/Creatinine Ratio 23.5 (12.0-20.0); CO2, Blood 29 mmol/L (21-32); Chloride, Blood 105 mmol/L (98-108); Creatinine, Blood 1.02 mg/dL (0.60-1.20); Glomerular Filtration Rate >60 (60-); Glucose, Blood 91 mg/dL (70-99); Potassium, Blood 3.6 mmol/L (3.5-5.5); Sodium, Blood 139 mmol/L (136-145)
--- NOTE | 2019-06-11 06:08 | NUR ---
06/11/19 0600 STARTED OFF THIS SHIFT CONFUSED AND THOUGHT HIS WAS IN HALLWAY. MORE ALERT LATER AND COOPERATIVE WITH CARE. HE DOES FORGET TO CALL FOR HELP UP BUT BED ALARM SOUNDS WHEN HE TRYS TOGET UP AND STAFF ASSISTS HIM WITH VOIDINGS/ BRIEF CHANGES. UNEVENTFUL NIGHT.
--- NOTE | 2019-06-11 13:11 | NUR ---
CALLED DR. POTTS'S OFFICE TO REQUEST CURRENT MED LIST.
--- NOTE | 2019-06-11 17:39 | NUR ---
SHIFT SUMMARY CONFUSED AT TIMES. FORGETS LIMITATIONS. UNSTEADY 1 PERSON SBA. PT AND SPOUSE CURRENTLY IN THE PROCESS OF MOVING TO [facility] ASSISTED [facility]. [employer] [employer] ([employer]ES AT HOME WITH ) FOLLOWS COMMANDS WELL, PLEASANT. EATING AND DRINKING WELL. RIGHT ARM BRUISING FROM PREVIOUS HEPARIN GTT-IMPROVED. PT AND OT. POA REQUESTING PT REMAIN IN HOSPITAL UNTIL ROOM AT [facility] IS READY. [facility] REPRESENTIVE STOPPED IN TO VISIT/ASSESS PT THIS P.M.
[2019-06-11] MEDS ORDERED: ASPI81CH PO (18:35)
[2019-06-11] MEDS ORDERED: VISCOUS LIDOCAINE PO (18:37)
[2019-06-11] MEDS ORDERED: CYAN500 PO (18:38)
--- NOTE | 2019-06-12 07:16 | NUR ---
SHIFT SUMMARY PT IS AN 89 Y/O MALE, ADMITTED FOR AN NSTEMI. HE IS A&O X SELF ONLY, AND IMPULSIVE IN GETTING OUT OF BED. HE WAS MEDICATED ONCE FOR L SIDE PAIN WITH TYLENOL. NO COMPLAINTS OF NAUSEA OR SOB. VITAL SIGNS STABLE. NO OTHER ACUTE CHANGES IN PT CONDITION NOTED DURING THE NIGHT. REPORT GIVEN TO ONCOMING RN.
--- NOTE | 2019-06-12 08:44 | NUR ---
BREAKFAST PT DECLINED TO GET INTO A CHAIR FOR BREAKFAST BECAUSE HE WAS SLEEPING WELL. WILL TRY TO GET UP FOR BREAKFAST AT A DIFFERENT TIME.
--- NOTE | 2019-06-12 13:20 | NUR ---
Pt. is lying in bed resting he reports doing well encouraged pt. and offered prayers .
--- NOTE | 2019-06-12 17:06 | NUR ---
SHIFT SUMMARY NO ACUTE CHANGES. PATIENT MEDICATED X1 FOR ABDOMINAL PAIN. PATIENT DENIES NAUSEA AND SHORTNESS OF BREATH. PATIENT UP ONE ASSIST W/FWW. PATIENT WORKED WITH PT AND OT TODAY. PATIENT'S ARRANGING MOVE TO [place] FOR PATIENT AND HERSELF WITH HELP OF ELIZABETH SHABAZZ. CALL LIGHT IN REACH.
--- NOTE | 2019-06-12 18:16 | NUR ---
Pt up in chair dispalys some confussion, Review with nursing pt has polst on file that is not signed. left loving choices booklet and AD information for . Will contact her tomorrow to get polst filled out and signed will review their spiritual and personnal belifs anon care ans well as hi prognosis so wishes can be respected and documented.
--- NOTE | 2019-06-13 07:10 | NUR ---
SHIFT SUMMARY PT IS AN 89 Y/O MALE, ADMITTED FOR AN NSTEMI. HE IS A&O X 1, AND A 1PA TO THE BSC. PT WAS MEDICATED ONCE FOR L HIP/SIDE PAIN WITH PRN TYLENOL. NO COMPLAINTS OF NAUSEA OR SOB. VITALS STABLE. NO OTHER ACUTE CHANGES IN PT CONDITION NOTED DURING NIGHT. REPORT GIVEN TO ONCAUDI EDUARDO.
[2019-06-13] MEDS ORDERED: ELIQUIS5 MG PO (10:42)
[2019-06-13] MEDS ORDERED: ATOR40TA PO (10:43)
[2019-06-13] MEDS ORDERED: CLOP75 PO (10:50)
[2019-06-13] MEDS ORDERED: LOSA25 PO (10:51)
[2019-06-13] MEDS ORDERED: METO50ER PO (10:53)
[2019-06-13] MEDS ORDERED: NITR.4SL SL (10:54)
[2019-06-13] MEDS ORDERED: Isosorbide Mono30 MG PO (10:59)
--- NOTE | 2019-06-13 12:37 | NUR ---
DISCHARGE DISCHARGE PACKET SENT WITH BILINGUAL MANAGER. PATIENT'S AND POA INFORMED OF DISCHARGE. POA MAE STATES SHE HAS PAID FOR A CAREGIVER TO BE AT THE HOME UNTIL SHE ARRIVES ON SUNDAY TO HELP THE PATIENT AND HIS MOVE INTO [place] ON SUNDAY. FOLLOW UP WITH PCP SCHEDULED. [facility] WILL CALL PATIENT AT HOME TODAY WITH CARDIAC FOLLOW UP APPOINTMENT. IV REMOVED WITHOUT DIFFICULTY. BELONGINGS WITH PATIENT. PATIENT TRANSPORTED HOME VIA WHEELCHAIR TRANSPORT.
== END 2019-06-13 12:36 | disposition home health service (06) ==
LOC: ER 09:22 → PCU 09:23 → MEDS 09:23 → PCU 09:24 → ER 11:51 → PCU 15:14 → MEDS 06-10 16:25 → ENPENDDIS 06-13 10:10 → MEDS 06-13 12:36
PROVIDERS: Nurse Practitioner Acute Care; Pharmacist; Physician Assistant; ADMIT Family Medicine
DX: I21.4 Non-ST elevation (NSTEMI) myocardial infarction (principal); I48.20 Chronic atrial fibrillation, unspecified; I42.0 Dilated cardiomyopathy; E11.9 Type 2 diabetes mellitus without complications; F41.9 Anxiety disorder, unspecified; I25.10 Atherosclerotic heart disease of native coronary artery without angina pectoris; I10 Essential (primary) hypertension; E78.5 Hyperlipidemia, unspecified; J44.9 Chronic obstructive pulmonary disease, unspecified; K21.9 Gastro-esophageal reflux disease without esophagitis; F32.9 Major depressive disorder, single episode, unspecified; L89.229 Pressure ulcer of left hip, unspecified stage; N40.0 Benign prostatic hyperplasia without lower urinary tract symptoms; Z95.1 Presence of aortocoronary bypass graft; Z95.0 Presence of cardiac pacemaker; Z79.02 Long term (current) use of antithrombotics/antiplatelets; Z79.899 Other long term (current) drug therapy; Z79.01 Long term (current) use of anticoagulants; Z88.8 Allergy status to other drugs, medicaments and biological substances; Z91.040 Latex allergy status
CPT/HCPCS: 36415; 71046; 80048; 80053; 81001; 83036; 84484; 85025; 85027; 85610; 85730; 87086; 93005; 93010; 94760; 96365-59; 96366; 96375; 96375-59; 96376; 97162; 97166; 97530; 97535; 99285-25; A9270; C1751; C8929; G0378; J0696; J1644; J2270; J2405; J7030; Q9957

== ENCOUNTER → 2019-09-29 | Outpatient (CLI) | payer MEDICARE, OTHER ==
[~2019-09-29] MED LIST changes: +ASPI81CH PO; +ATOR40TA PO; +Bentyl10 MG; +Bentyl20 MG PO; +CLOP75 PO; +CYAN500 PO; +Cymbalta20 MG PO; +DOXE10; +ELIQUIS5 MG PO; +Isosorbide Mono30 MG PO; +LOSA25 PO; +METO50ER PO; +PANTOPRAZOLE SO40 M2 PO; +RANOLAZINE ER500 M2 PO; +VISCOUS LIDOCAINE PO; +Voltaren100 GM TOP
[2019-09-29 18:46] LABS: Bilirubin, Urine Neg (Neg); Blood, Urine Neg (Neg); Glucose Qualitative, Urine Neg (Neg); Ketones, Urine Neg (Neg); Leukocyte Esterase, Urine Neg (Neg); Nitrite, Urine Neg (Neg); Protein, Urine Neg (Neg); Specific Gravity, Urine 1.015 (1.003-1.022); Urobilinogen, Urine NORM (Normal)
[2019-09-29 19:07] LABS: Appearance, Urine Clear (Clear); Color, Urine Yellow (P-Yellow)
== END | disposition home or self-care (01) ==
LOC: LAB 17:41 → LAB SHORT 17:41
PROVIDERS: Family Medicine
DX: N39.0 Urinary tract infection, site not specified (principal)
CPT/HCPCS: 81003

== ENCOUNTER → 2019-12-01 | Outpatient (CLI) | payer MEDICARE, OTHER ==
[2019-12-01 11:53] LABS: Source, Urine Clean Catch
[2019-12-01 12:56] LABS: Bilirubin, Urine Neg (Neg); Blood, Urine Neg (Neg); Glucose Qualitative, Urine Neg (Neg); Ketones, Urine Neg (Neg); Leukocyte Esterase, Urine Neg (Neg); Nitrite, Urine Neg (Neg); Protein, Urine Neg (Neg); Urobilinogen, Urine 1+ (Normal)
[2019-12-01 13:15] LABS: Appearance, Urine Clear (Clear); Color, Urine Yellow (P-Yellow)
== END | disposition home or self-care (01) ==
LOC: LAB SHORT 08:45 → LAB 08:45
PROVIDERS: Family Medicine
DX: N39.0 Urinary tract infection, site not specified (principal)
CPT/HCPCS: 81003